=== PATIENT | female | born 1995 | race African-American/Black ===

== ENCOUNTER 2016-08-11 20:46 | Emergency (ER) | payer MEDICAID, OTHER ==
[~2016-08-11] VITALS: Ht 160 cm; Wt 90.0 kg
[2016-08-11] MEDS ORDERED: IBUPROFEN 800MG TABLET PO ONE (22:45)
[2016-08-11 22:54] LABS: CLARITY URINE CLEAR (CLEAR); COLOR URINE YELLOW (YELLOW); GLUCOSE URINE NEGATIVE (NEGATIVE); KETONES URINE NEGATIVE (NEGATIVE); LEUKOCYTE ESTERASE URINE 2+ (NEGATIVE); NITRITE URINE NEGATIVE (NEGATIVE); OCCULT BLOOD URINE 3+ (NEGATIVE); PROTEIN URINE NEGATIVE (NEGATIVE)
[2016-08-11 23:06] LABS: BASOPHILS % 1.2 % (0.0-2.0); DIFFERENTIAL COMMENT 0; EOSINOPHILS % 2.5 % (0.0-5.0); HEMOGLOBIN. 9.5 g/dL (12.0-16.0); LYMPHOCYTES % 42.8 % (20.0-50.0); MEAN CORPUSCULAR HEMOGLOBIN 23.9 pg (28.0-32.0); MEAN CORPUSCULAR HGB CONC 31.8 g/dL (31.0-37.0); MEAN CORPUSCULAR VOLUME 75.1 fL (81.0-99.0); MEAN PLATELET VOLUME 8.9 fl (7.4-10.4); MONOCYTES % 6.6 % (2.0-8.0); NEUTROPHILS % 46.9 % (40.0-76.0); PLATELET 283 x1000/uL (130-400); RED BLOOD CELL COUNT 3.99 mill/uL (4.2-5.4); RED CELL DISTRIBUTION WIDTH 17.4 % (11.6-14.6); WHITE BLOOD COUNT 6.2 x1000/uL (4.5-11.0)
[2016-08-11 23:18] LABS: BACTERIA URINE 1+; RBC URINE 25-50 /hpf (0-2); SQUAMOUS EPITHELIAL CELL URINE FEW /lpf (RARE/1+)
[2016-08-12 00:45] VITALS: BP 134/80
[2016-08-12] MEDS ORDERED: MIDAZOLAM HCL 2 MG/2 ML VIAL ONE (09:52)
[2016-08-12] MEDS ORDERED: FENTANYL CITRATE/PF 50MCG/ML 2ML VIAL ONE (09:52)
[2016-08-12] MEDS ORDERED: HYDROMORPHONE HCL/PF 2MG/ML (OR) ONE (10:17)
[2016-08-12] MEDS ORDERED: SODIUM CHLORIDE 0.9% 10ML VIAL ONE (10:19)
[2016-08-12] MEDS ORDERED: SUCCINYLCHOLINE CHLORIDE 200MG/10ML VIAL IV ONE (10:19)
[2016-08-12] MEDS ORDERED: CEFAZOLIN SODIUM 1000MG/VIAL ONE (10:19)
[2016-08-12] MEDS ORDERED: PROPOFOL 200MG/20ML VIAL IV ONE (10:19)
[2016-08-12] MEDS ORDERED: LIDOCAINE HCL 1% 20ML VIAL (Pyxis) INJ ONE (10:19)
[2016-08-12] MEDS ORDERED: DEXAMETHASONE 4MG/ML 1ML VIAL ONE (10:19)
[2016-08-12] MEDS ORDERED: ONDANSETRON HCL 4MG/2ML VIAL ONE (10:20)
== END 2016-08-12 00:54 | disposition home or self-care (01) ==
LOC: ER 20:47
DX: N39.0 Urinary tract infection, site not specified (principal); J45.909 Unspecified asthma, uncomplicated; F17.200 Nicotine dependence, unspecified, uncomplicated; F12.10 Cannabis abuse, uncomplicated; D50.9 Iron deficiency anemia, unspecified
CPT/HCPCS: 36415; 81001; 81025; 85025; 99284; A4216; J0330; J0690; J1100; J1170; J2250; J2405; J3010; J3490; 99283; J2704

== ENCOUNTER 2016-12-04 05:06 | Emergency (ER) | payer MEDICAID ==
[~2016-12-04] VITALS: Ht 160 cm; Wt 92.0 kg
[2016-12-04 05:22] VITALS: BP 135/76
== END 2016-12-04 08:42 | disposition left against medical advice (07) ==
LOC: ER 08:35
DX: R05 Cough (principal); R07.9 Chest pain, unspecified; Z53.21 Procedure and treatment not carried out due to patient leaving prior to being seen by health care provider

== ENCOUNTER 2018-01-28 08:27 | Emergency (ER) | payer MEDICAID ==
[~2018-01-28] VITALS: Ht 165.1 cm; Wt 85.0 kg
[2018-01-28] MEDS ORDERED: KETOROLAC 30MG/ML VIAL IV ONE (10:15)
[2018-01-28] MEDS ORDERED: METOCLOPRAMIDE HCL 10MG/2ML VIAL IV ONE (10:15)
[2018-01-28] MEDS ORDERED: SODIUM CHLORIDE 0.9% 1,000 ML IV ONE (10:15)
[2018-01-28] MEDS ORDERED: MORPHINE SULFATE 4 MG/ML CPJ (NOT FOR IM USE) IV ONE (10:15)
[2018-01-28 10:57] LABS: CLARITY URINE CLOUDY (CLEAR); COLOR URINE YELLOW (YELLOW); KETONES URINE NEGATIVE (NEGATIVE); LEUKOCYTE ESTERASE URINE 2+ (NEGATIVE); NITRITE URINE NEGATIVE (NEGATIVE); OCCULT BLOOD URINE 2+ (NEGATIVE); PH URINE 5.5 (4.5-8.0); PROTEIN URINE 1+ (NEGATIVE); UROBILINOGEN URINE 0.2 E.U./dL (0.2-1.0)
[2018-01-28 12:00] VITALS: BP 127/74
== END 2018-01-28 12:30 | disposition home or self-care (01) ==
LOC: ER 08:42
DX: R51 Headache (principal); I10 Essential (primary) hypertension
CPT/HCPCS: 70450; 81003; 81025; 87086; 96374; 99285; J1885; J2270; J2765; J7030; Z7610